=== PATIENT | female | born 1960 | race Caucasian/White ===

== ENCOUNTER 2019-12-09 13:19 | Emergency (ER) | payer SELFPAY ==
[~2019-12-09] VITALS: Ht 167.6 cm; Wt 110.0 kg
[~2019-12-09 13:19] MED LIST: ACET325T9 PO; AMLO10TA4 PO; ASPI81TA59 PO; ATOR40TA PO; Aspirin PO; CLOP75TA PO; HYDR-2761 PO; LEVO200T PO; LEVO75TA90 PO; LISI-334 PO; Lisinopril PO; Nicotine TD
[2019-12-09 14:50] LABS: BASO # 0.1 x10^3/uL (0.0-0.2); BASO % 1 % (0-3); EOS # 0.1 x10^3/uL (0.0-0.7); EOS % 1 % (0-3); HEMATOCRIT 41.9 % (36.0-47.0); HEMOGLOBIN 13.6 g/dL (12.0-15.5); LYMPH # 1.5 x10^3/uL (1.0-4.8); LYMPH % 13 % (24-48); MEAN CORPUSCULAR HEMOGLOBIN 27 pg (25-35); MEAN CORPUSCULAR HGB CONC 32 g/dL (31-37); MEAN CORPUSCULAR VOLUME 84 fL (79-100); MONO # 0.8 x10^3/uL (0.0-1.1); MONO % 7 % (0-9); NEUT # 8.9 x10^3/uL (1.8-7.7); NEUT % 79 % (31-73); PLATELET COUNT 394 x10^3/uL (140-400); RED BLOOD COUNT 5.01 x10^6/uL (3.50-5.40); RED CELL DISTRIBUTION WIDTH 14.9 % (11.5-14.5); WHITE BLOOD COUNT 11.3 x10^3/uL (4.0-11.0)
[2019-12-09 14:57] LABS: CALCIUM 8.7 mg/dL (8.5-10.1); CREATININE 0.9 mg/dL (0.6-1.0); GFR 64.3; POTASSIUM 3.9 mmol/L (3.5-5.1)
[2019-12-09 14:59] LABS: PROTHROMBIN TIME PATIENT 12.6 SEC (11.7-14.0)
[2019-12-09 15:03] LABS: ALBUMIN 3.5 g/dL (3.4-5.0); ALBUMIN/GLOBULIN RATIO 1.1 (1.0-1.7); TOTAL BILIRUBIN 0.3 mg/dL (0.2-1.0); TOTAL PROTEIN 6.8 g/dL (6.4-8.2)
[2019-12-09 15:40] LABS: BILIRUBIN,URINE NEGATIVE (NEG); COLOR,URINE YELLOW; NITRITE,URINE NEGATIVE (NEG); PH,URINE 5.5 (<5.0-8.0); PROTEIN,URINE NEGATIVE (NEG-TRACE); UROBILINOGEN,URINE 0.2 mg/dL (0.2 mg/dL)
[2019-12-09 15:46] LABS: CLARITY,URINE CLEAR
[2019-12-09 15:50] LABS: BACTERIA,URINE FEW /HPF (0-FEW); SQUAMOUS EPITHELIAL CELL,UR MANY /LPF; WBC,URINE 0 /HPF (0-4)
--- NOTE | 2019-12-09 16:31 | RAD ---
Abdominal series with PA view chest x-ray Clinical indications: Abdominal pain with nausea and vomiting. FINDINGS: No obstructive bowel pattern is evident. There is moderate fecal retention within the left side of the colon and the rectosigmoid region. No air-fluid levels are seen. No free intraperitoneal air is evident. Primary degenerative osteoarthritis of the right hip joint is evident. Chest x-ray demonstrates no acute lung infiltrate or pleural effusion or pulmonary edema or pneumothorax. The heart size and pulmonary vasculature mediastinum and both khloe are unremarkable. IMPRESSION: Moderate fecal retention within the left side of the colon and the rectosigmoid region. No acute lung infiltrate. Severe primary degenerative osteoarthritis of the right hip joint. Electronically signed by: Rashid Garzon MD (12/09/2019 4:29 PM) [id number]
--- NOTE | 2019-12-09 16:52 | PHYS DOC ---
Past Medical History Past Medical History: CVA, Hypertension, TIA Past Surgical History: Additional Past Surgical Histo: THYROIDECTOMY, CYST REMOVED FROM OVARY, TUMOR REMOVED FROM L FOOT Smoking Status: Current Every Day Smoker Alcohol Use: None Drug Use: None General Adult EDM: Chief Complaint: HYPERTENSION, nausea, cramping in her legs. HPI: HPI: Patient is a 59 year old female who was brought here by EMS from home due to several complaints. Patient said she has been having nausea vomiting some cramping in her abdominal area since yesterday after eating some barbecue at home. Patient has several episodes of nausea and vomiting this afternoon after eating again. Patient said around noon today she started having cramping all over her body then her extremities lock up that she could not straighten them out. Patient denies any headache, no chest pain, no trouble breathing, no blurry vision or weakness. EMS were called, when they got there patient a ppeared to be shaky. Patient was brought here for evaluation. Patient feels much better when she got here. Review of Systems: Review of Systems: Constitutional: Denies fever or chills. [] Eyes: Denies change in visual acuity. [] HENT: Denies nasal congestion or sore throat. [] Respiratory: Denies cough or shortness of breath. [] Cardiovascular: Denies chest pain or edema. [] GI: Positive for abdominal pain, nausea, vomiting, NO bloody stools or diarrhea. [] : Denies dysuria. [] Musculoskeletal: Denies back pain or joint pain. Extremities cramping. Integument: Denies rash. [] Neurologic: Denies headache, focal weakness or sensory changes. [] Endocrine: Denies polyuria or polydipsia. [] Lymphatic: Denies swollen glands. [] Psychiatric: Denies depression or anxiety. [] Heart Score: Risk Factors: Risk Factors: DM, Current or recent (<one month) smoker, HTN, HLP, family history of CAD, obesity. Risk Scores: Score 0 - 3: 2.5% MACE over next 6 weeks - Discharge Home Score 4 - 6: 20.3% MACE over next 6 weeks - Admit for Clinical Observation Score 7 - 10: 72.7% MACE over next 6 weeks - Early Invasive Strategies Allergies: Allergies: Allergies Coded Allergies Type Severity Reaction Last Updated Verified I S O L A T I O N *CONTACT* Allergy Unknown 04/21/15 Yes No Known Medication Allergies Allergy Unknown 04/21/15 Yes Physical Exam: PE: Constitutional: Well developed, well nourished, no acute distress, non-toxic appearance. [] HENT: Normocephalic, atraumatic, bilateral external ears normal, oropharynx moist, no oral exudates, nose normal. [] Eyes: PERRLA, EOMI, conjunctiva normal, no discharge. [] Neck: Normal range of motion, no tenderness, supple, no stridor. [] Cardiovascular:Heart rate regular rhythm, no murmur [] Lungs & Thorax: Bilateral breath sounds clear to auscultation [] Abdomen: Bowel sounds normal, soft, no tenderness, no masses, no pulsatile masses. [] Skin: Warm, dry, no erythema, no rash. [] Back: No tenderness, no CVA tenderness. [] Extremities: No tenderness, no cyanosis, no clubbing, ROM intact, no edema. [] Neurologic: Alert and oriented X 3, normal motor function, normal sensory function, no focal deficits noted. [] Psychologic: Affect normal, judgement normal, mood normal. [] Current Patient Data: Labs: Laboratory Tests Test 12/09/19 13:30 12/09/19 15:35 White Blood Count 11.3 x10^3/uL (4.0-11.0) H Red Blood Count 5.01 x10^6/uL (3.50-5.40) Hemoglobin 13.6 g/dL (12.0-15.5) Hematocrit 41.9 % (36.0-47.0) Mean Corpuscular Volume 84 fL (79-100) Mean Corpuscular Hemoglobin 27 pg (25-35) Mean Corpuscular Hemoglobin Concent 32 g/dL (31-37) Red Cell Distribution Width 14.9 % (11.5-14.5) H Platelet Count 394 x10^3/uL (140-400) Neutrophils (%) (Auto) 79 % (31-73) H Lymphocytes (%) (Auto) 13 % (24-48) L Monocytes (%) (Auto) 7 % (0-9) Eosinophils (%) (Auto) 1 % (0-3) Basophils (%) (Auto) 1 % (0-3) Neutrophils # (Auto) 8.9 x10^3/uL (1.8-7.7) H Lymphocytes # (Auto) 1.5 x10^3/uL (1.0-4.8) Monocytes # (Auto) 0.8 x10^3/uL (0.0-1.1) Eosinophils # (Auto) 0.1 x10^3/uL (0.0-0.7) Basophils # (Auto) 0.1 x10^3/uL (0.0-0.2) Prothrombin Time 12.6 SEC (11.7-14.0) Prothrombin Time INR 1.0 (0.8-1.1) Activated Partial Thromboplast Time 37 SEC (24-38) Sodium Level 142 mmol/L (136-145) Potassium Level 3.9 mmol/L (3.5-5.1) Chloride Level 102 mmol/L (98-107) Carbon Dioxide Level 27 mmol/L (21-32) Anion Gap 13 (6-14) Blood Urea Nitrogen 22 mg/dL (7-20) H Creatinine 0.9 mg/dL (0.6-1.0) Estimated GFR (Cockcroft-Gault) 64.3 BUN/Creatinine Ratio 24 (6-20) H Glucose Level 86 mg/dL (70-99) Calcium Level 8.7 mg/dL (8.5-10.1) Total Bilirubin 0.3 mg/dL (0.2-1.0) Aspartate Amino Transferase (AST) 15 U/L (15-37) Alanine Aminotransferase (ALT) 26 U/L (14-59) Alkaline Phosphatase 73 U/L (46-116) Troponin I Quantitative < 0.017 ng/mL (0.000-0.055) Total Protein 6.8 g/dL (6.4-8.2) Albumin 3.5 g/dL (3.4-5.0) Albumin/Globulin Ratio 1.1 (1.0-1.7) Lipase 115 U/L (73-393) Urine Collection Type Void Urine Color Yellow Urine Clarity Clear Urine pH 5.5 (<5.0-8.0) Urine Specific [place] 1.025 (1.000-1.030) Urine Protein Negative mg/dL (NEG-TRACE) Urine Glucose (UA) Negative mg/dL (NEG) Urine Ketones (Stick) Negative mg/dL (NEG) Urine Blood Moderate (NEG) Urine Nitrite Negative (NEG) Urine Bilirubin Negative (NEG) Urine Urobilinogen Dipstick 0.2 mg/dL (0.2 mg/dL) Urine Leukocyte Esterase Negative (NEG) Urine RBC 1-2 /HPF (0-2) Urine WBC 0 /HPF (0-4) Urine Squamous Epithelial Cells Many /LPF Urine Bacteria Few /HPF (0-FEW) Urine Mucus Marked /LPF Laboratory Tests 12/09/19 13:30 Laboratory Tests 12/09/19 13:30 Vital Signs: Vital Signs Date Time Temp Pulse Resp B/P (MAP) Pulse Ox O2 Delivery O2 Flow Rate FiO2 12/09/19 15:03 54 97 12/09/19 14:33 12 12/09/19 13:30 97.3 185/103 (130) Room Air 97.3 EKG: EKG: EKG was done at 1327, heart rate 73 bpm, sinus rhythm, no ST segment elevation, PVC. EKG was read by this physician. Radiology/Procedures: Radiology/Procedures: [][facility] [address] [place] [address] IMAGING REPORT Signed PATIENT: LEWIS TONY ACCOUNT: [id number] : 1960 LOCATION: ER AGE: 59 SEX: F EXAM STATUS: REG ER ORD. PHYSICIAN: KWAKU JONES DO REASON: abdominal pain, nausea, vomiting PROCEDURE: ACUTE ABDOMEN SERIES Abdominal series with PA view chest x-ray Clinical indications: Abdominal pain with nausea and vomiting. FINDINGS: No obstructive bowel pattern is evident. There is moderate fecal retention within the left side of the colon and the rectosigmoid region. No air-fluid levels are seen. No free intraperitoneal air is evident. Primary degenerative osteoarthritis of the right hip joint is evident. Chest x-ray demonstrates no acute lung infiltrate or pleural effusion or pulmonary edema or pneumothorax. The heart size and pulmonary vasculature mediastinum and both khloe are unremarkable. IMPRESSION: Moderate fecal retention within the left side of the colon and the rectosigmoid region. No acute lung infiltrate. Severe primary degenerative osteoarthritis of the right hip joint. Electronically signed by: Jennifer Garzon MD (12/09/2019 4:29 PM) [id number] DICTATED and SIGNED BY: JENNIFER GARZON MD DATE: 12/09/19 1629 Course & Med Decision Making: Course & Med Decision Making Pertinent Labs and Imaging studies reviewed. (See chart for details) Patient is a 59-year-old female who was evaluated in the ER today due to nausea vomiting and cramping in her extremity. Patient blood pressure was elevated in the ED, because she did not take her medication due to nausea and vomiting. Patient feels much better here, denies any headache or chest pain. Her blood pressure improved, she is no longer having cramping in her lower extremity. X- ray of her abdomen pelvic show moderate amount of stool in her colon in her sigmoid colon. No evidence of obstruction. Patient feels much better, she will be discharged home. Dragon Disclaimer: Dragon Disclaimer: This electronic medical record was generated, in whole or in part, using a voice recognition dictation system. Departure Departure Impression: Primary Impression: Nausea & vomiting Additional Impressions: Limb cramps HTN (hypertension) Disposition: 01 HOME, SELF-CARE Condition: IMPROVED Referrals: [facility] (PCP) Please follow-up with your family doctor in a couple days for reevaluation. Patient Instructions: Hypertension, Leg Cramps, Nausea and Vomiting Additional Instructions: Thank you for visiting our Emergency Department. We appreciate you trusting us with your care. If any additional problems come up don't hesitate to return to visit us. Please follow up with your primary care provider so they can plan additional care if needed and know about the problem that you had. If symptoms worsen come back to the Emergency Department. Any concerning symptoms that start such as chest pain, shortness of air, weakness or numbness on one side of the body, running high fevers or any other concerning symptoms return to the ER. KWAKU JONES DO December 09, 2019 16:52
[2019-12-09] MEDS ORDERED: cloNIDine HCL 0.1 MG TABLET PO ONE (17:30)
[2019-12-09 18:27] VITALS: BP 213/110
--- NOTE | 2019-12-10 08:05 | EKG ---
[facility] [address] [place] [address] Test Date: 2019-12-09 Test Time: 13:26:26 Pat Name: LEWIS TONY Department: Room: Gender: F Director Women: : 1960 Requested By: KWAKU JONES Order Number: [id number] Reading MD: Pal Babin Measurements Intervals [place] Rate: 73 P: -28 WI: 170 QRS: -29 QRSD: 114 T: 117 QT: 416 QTc: 462 Interpretive Statements SINUS RHYTHM LEFTWARD AXIS LVH WITH REPOLARIZATION ABNORMALITY ABNORMAL ECG Electronically Signed On 12-10-2019 8:59:47 CDT by Pal Babin
[2019-12-11] MEDS ORDERED: FLUO40CA2 PO (12:24)
== END 2019-12-09 18:29 | disposition home or self-care (01) ==
LOC: ER 13:19
DX: R11.2 Nausea with vomiting, unspecified (principal); R10.9 Unspecified abdominal pain; I10 Essential (primary) hypertension; I97.821 Postprocedural cerebrovascular infarction following other surgery; F17.200 Nicotine dependence, unspecified, uncomplicated; Z86.73 Personal history of transient ischemic attack (TIA), and cerebral infarction without residual deficits; Z90.89 Acquired absence of other organs; Z98.890 Other specified postprocedural states
CPT/HCPCS: 36415; 74022; 80053; 81001; 83690; 84484; 85025; 85610; 85730; 93005; 99285